=== PATIENT | female | born 1960 | race Caucasian/White ===

== ENCOUNTER 2021-01-27 19:10 | Emergency (ER) | payer MEDICAID, OTHER ==
[~2021-01-27] VITALS: Ht 157.5 cm; Wt 73.0 kg
[2021-01-27 19:12] VITALS: BP 170/75
[2021-01-27] MEDS ORDERED: HYDROcodone/APAP 5/325 TABLET PO ONE (20:00)
[2021-01-27] MEDS ORDERED: HYDROcodone/APAP 5/325 TABLET ONE (20:00)
== END 2021-01-27 21:25 | disposition home or self-care (01) ==
LOC: ED 21:19
DX: S29.012A Strain of muscle and tendon of back wall of thorax, initial encounter (principal); S30.0XXA Contusion of lower back and pelvis, initial encounter; I10 Essential (primary) hypertension; E11.9 Type 2 diabetes mellitus without complications; E78.5 Hyperlipidemia, unspecified; Z86.73 Personal history of transient ischemic attack (TIA), and cerebral infarction without residual deficits; W18.30XA Fall on same level, unspecified, initial encounter; Y93.89 Activity, other specified; Y92.89 Other specified places as the place of occurrence of the external cause; Y99.8 Other external cause status
CPT/HCPCS: 72110; 72220; 99284